=== PATIENT | female | born 1975 | race Caucasian/White ===

== ENCOUNTER → 2017-07-30 | Outpatient (CLI) | payer BC | END | disposition home or self-care (01) | LOC: KCIC MAMMO 08:21 | DX: Z12.31 Encounter for screening mammogram for malignant neoplasm of breast (principal); R06.00 Dyspnea, unspecified | CPT/HCPCS: 71046; 77067 ==

== ENCOUNTER → 2021-04-03 | Outpatient (CLI) | payer BC ==
--- NOTE | 2021-04-03 10:31 | KCIC ---
Bilateral digital screening mammograms: Reason for examination: Routine screening. Comparison is made to previous study dated 07/30/2017. Interpretation was made with the benefit of CAD. The skin and nipples show no abnormalities. No abnormal axillary lymph nodes are seen. The breast par enchyma shows scattered fibroglandular density. (Breast density: Category B.) There continues to be a small parenchymal density present in the central right breast on oblique view which is stable. There are no new dominant masses, suspicious calcifications or architectural distortions. Impression: No evidence of malignancy. Recommend routine screening. BI-RADS Category 2: Benign. "Our facility is accredited by the [employer] Mammography Program." This patient's information has been entered into a reminder system for the patient to be notified wit h the results of her examination and a target date for the next mammogram. Electronically signed by: Marla Maher MD (04/03/2021 10:28 AM) [email or web address]
== END ==
LOC: KCIC MAMMO 09:23
PROVIDERS: ATTEND Nurse Practitioner Family
DX: Z12.31 Encounter for screening mammogram for malignant neoplasm of breast (principal)
CPT/HCPCS: 77067